=== PATIENT | male | born 1990 | race Two or more races ===

== ENCOUNTER 2020-05-08 20:11 | Inpatient (IN) ==
[2020-05-08] MEDS ORDERED: HYDROmorphone 2 MG/1 ML VIAL IV STA ×2 (20:13→21:59)
[2020-05-08] MEDS ORDERED: LACTATED RINGERS 1,000 ML IV STA (20:25)
[2020-05-08] MEDS ORDERED: DIPH/TET/ACEL PERT BOOSTER VACCINE 0.5 ML VIAL IM ONE (20:25)
[2020-05-08 20:52] LABS: Basophils # 0.1 10*3/uL (0.0-0.2); Basophils % 0.2 % (0.0-0.8); Eosinophils # 0.2 10*3/uL (0.0-0.87); Eosinophils % 0.8 % (0.00-10.9); Hematocrit 46.5 VOL% (42.0-52.0); Hemoglobin 15.5 GM/DL (14.0-18.0); Immature Granulocytes % 0.7 %; Immature Granulocytes Absolute 0.15 #; Lymphocytes # 3.5 10*3/uL (1.4-4.0); Lymphocytes % 15.5 % (21.2-54.2); Mean Corpuscular HGB Conc 33.3 GM/DL (32-36); Mean Corpuscular Volume 91.2 FL (87-102); Mean Platelet Volume 9.6 FL (9.6-12.0); Monocytes % 5.9 % (1.7-12.7); Neutrophils % 76.9 % (38.7-73.9); Platelet Count 330 T/CUMM (130-400); Red Cell Distribution Width 14.2 % (9.3-17.3); White Blood Count 22.7 T/CUMM (4-12)
[2020-05-08 21:06] LABS: Bilirubin,Urine Negative (Negative); Blood, Urine Negative (Negative); Glucose,Urine (UA) Negative (Negative); Ketones,Urine Negative (Negative); Mucus,Urine Occasional /LPF (Occasional); Nitrite,Urine Negative (Negative); Protein,Urine 100 MG/DL; RBC,Urine 1 /HPF (0-4); Urine Appearance CLEAR (Clear); Urine Color Yellow (Yellow); Urine Specific Gravity 1.018 (1.001-1.035); WBC,Urine <1 /HPF (0-6)
[2020-05-08 21:07] LABS: PT Patient Result 10.4 SECS (9.8-11.9); Partial Thromboplastin Time 21.4 SECS (23.9-33.8)
[2020-05-08 21:11] LABS: Barbiturates Screen,Urine Negative (Negative); Benzodiazepines Screen,Urine Negative (Negative); Cannabinoid Screen,Urine Negative (Negative); Opiate Screen,Urine Negative (Negative); Phencyclidine Screen,Urine Negative (Negative)
[2020-05-08 21:12] LABS: Alanine Aminotransferase 47 U/L (16-61); Albumin 3.8 G/DL (3.4-5.0); Alkaline Phosphatase 110 U/L (45-117); Amylase 90 U/L (25-115); Aspartate Amino Transferase 33 U/L (0-37); Blood Urea Nitrogen 12 MG/DL (7-18); Calcium 9.1 MG/DL (8.5-10.1); Estimated Glom Filtration Rate 56 ML/MIN; Glucose 124 MG/DL (74-106); Osmolality,Calculated 275.7 MOS/KG (273-304)
[2020-05-08] MEDS ORDERED: POTASSIUM CHLORIDE RIDER 20 MEQ in PREMIX 1 EACH IV STA ×2 (21:16→21:21)
[2020-05-08 21:19] LABS: Eosinophils 2 % (0-10); Lymphocytes 20 % (20-55); Platelet Estimate Normal; Reactive Lymphocytes 1+; Segmented Neutrophils 74 % (50-85); Total Cells Counted 100
[2020-05-08] MEDS ORDERED: GENTAMICIN INJ 100 MG in SODIUM CHLORIDE 0.9% 100 ML IV STA (22:03)
[2020-05-08] MEDS ORDERED: LIDOCAINE 2% 20 ML VIAL ONE (22:03)
[2020-05-08] MEDS ORDERED: GENTAMICIN INJ 100 ML IV STA (22:07)
[2020-05-08] MEDS ORDERED: TISSUE ADHESIVE 1 EACH APPLICATOR TOP ONE (22:19)
[2020-05-09] MEDS ORDERED: ACETAMINOPHEN 325 MG TABLET PO PRN (03:46)
[2020-05-09] MEDS ORDERED: HYDROmorphone 2 MG/1 ML VIAL IV PRN (03:46)
[2020-05-09] MEDS ORDERED: ONDANSETRON 4 MG/2 ML VIAL IV PRN (03:46)
[2020-05-09] MEDS ORDERED: ALBUTEROL/IPRATROPIUM 3 ML NEB RESP TX PRN (03:46)
[2020-05-09 06:49] LABS: Basophils % 0.2 % (0.0-0.8); Hematocrit 39.5 VOL% (42.0-52.0); Immature Granulocytes % 0.6 %; Immature Granulocytes Absolute 0.07 #; Lymphocytes # 1.1 10*3/uL (1.4-4.0); Lymphocytes % 8.3 % (21.2-54.2); Mean Corpuscular HGB Conc 34.2 GM/DL (32-36); Mean Corpuscular Volume 89.4 FL (87-102); Mean Platelet Volume 9.9 FL (9.6-12.0); Monocytes % 9.7 % (1.7-12.7); Neutrophils % 81.2 % (38.7-73.9); Platelet Count 282 T/CUMM (130-400); Red Blood Count 4.42 MC/CUMM (3.8-5.5); Red Cell Distribution Width 14.4 % (9.3-17.3)
[2020-05-09 06:51] LABS: White Blood Count 12.7 T/CUMM (4-12)
[2020-05-09 06:52] LABS: Hemoglobin 13.5 GM/DL (14.0-18.0)
[2020-05-09 07:00] LABS: Albumin 3.4 G/DL (3.4-5.0); Bilirubin,Total 1.4 MG/DL (0.2-1.0); Calcium 8.9 MG/DL (8.5-10.1); Osmolality,Calculated 272.8 MOS/KG (273-304); Total Protein 7.1 G/DL (6.4-8.3)
[2020-05-09] MEDS: SODIUM CHLORIDE 0.9% 1,000 ML IV SCH ×2 (07:07→18:07)
[2020-05-09] MEDS ORDERED: PROMETHAZINE 25 MG/1 ML VIAL IM PRN (09:35)
[2020-05-09] MEDS ORDERED: MORPHINE 4 MG/1 ML VIAL IV PRN (09:35)
[2020-05-09] MEDS ORDERED: diphenhydrAMINE CAP 25 MG CAPSULE PO PRN (09:35)
[2020-05-09] MEDS ORDERED: BISACODYL 10 MG SUPP RECTAL PRN (09:35)
[2020-05-09] MEDS ORDERED: LACTULOSE 20 GM/30 ML UDCUP PO PRN (09:35)
[2020-05-09] MEDS ORDERED: MAGNESIUM HYDROXIDE SUSP 30 ML UDCUP PO PRN (09:35)
[2020-05-09] MEDS ORDERED: LIDOCAINE 2% 5 ML VIAL ONE (09:47)
[2020-05-09] MEDS ORDERED: propofoL 200 MG/20 ML VIAL IV ONE (09:47)
[2020-05-09] MEDS ORDERED: LABETALOL 20 MG/4 ML SYRINGE IV ONE (09:47)
[2020-05-09] MEDS ORDERED: DEXAMETHASONE 4 MG/1 ML VIAL ONE (09:48)
[2020-05-09] MEDS ORDERED: fentaNYL 100 MCG/2 ML VIAL ONE (09:48)
[2020-05-09] MEDS ORDERED: SEVOFLURANE 1 UNIT/15 MINUTE INH ONE (09:48)
[2020-05-09] MEDS ORDERED: ONDANSETRON 4 MG/2 ML VIAL ONE (09:48)
[2020-05-09] MEDS ORDERED: MIDAZOLAM 2 MG/2 ML VIAL ONE (09:48)
[2020-05-09] MEDS ORDERED: NITROGLYCERIN DRIP 50 MG/250 ML BOTTLE IV ONE (09:49)
[2020-05-09] MEDS ORDERED: ROCURONIUM 100 MG/10 ML VIAL IV ONE (09:49)
[2020-05-09] MEDS ORDERED: ACETAMINOPHEN 1,000 MG/100 ML VIAL IV ONE (09:49)
[2020-05-09] MEDS ORDERED: NEOSTIGMINE 10 MG/10 ML VIAL ONE (09:49)
[2020-05-09] MEDS ORDERED: GLYCOPYRROLATE 0.4 MG/2 ML VIAL ONE (09:49)
[2020-05-09] MEDS ORDERED: KETOROLAC 30 MG/1 ML VIAL ONE (09:49)
[2020-05-09] MEDS: ceFAZolin 1,000 MG in SYRINGE 1 EACH IV SCH ×2 (13:52→22:39)
[2020-05-09] MEDS: PANTOPRAZOLE 40 MG TABLET PO SCH (13:52)
[2020-05-10] MEDS: ceFAZolin 1,000 MG in SYRINGE 1 EACH IV SCH ×3 (04:38→20:00)
[2020-05-10 05:59] LABS: Basophils % 0.1 % (0.0-0.8); Eosinophils % 0.1 % (0.00-10.9); Hematocrit 31.7 VOL% (42.0-52.0); Hemoglobin 10.7 GM/DL (14.0-18.0); Immature Granulocytes % 0.3 %; Immature Granulocytes Absolute 0.03 #; Lymphocytes # 1.5 10*3/uL (1.4-4.0); Lymphocytes % 13.7 % (21.2-54.2); Mean Corpuscular HGB Conc 33.8 GM/DL (32-36); Mean Corpuscular Volume 91.1 FL (87-102); Mean Platelet Volume 9.9 FL (9.6-12.0); Monocytes % 10.8 % (1.7-12.7); Platelet Count 222 T/CUMM (130-400); Red Blood Count 3.48 MC/CUMM (3.8-5.5); Red Cell Distribution Width 14.6 % (9.3-17.3); White Blood Count 10.8 T/CUMM (4-12)
[2020-05-10] MEDS: PANTOPRAZOLE 40 MG TABLET PO SCH (09:16)
[2020-05-11] MEDS: ceFAZolin 1,000 MG in SYRINGE 1 EACH IV SCH (03:19)
[2020-05-11] MEDS: SODIUM CHLORIDE 0.9% 1,000 ML IV SCH (06:24)
[2020-05-11] MEDS: PANTOPRAZOLE 40 MG TABLET PO SCH (09:17)
[2020-05-11 11:45] VITALS: BP 133/76
== END 2020-05-11 11:50 | disposition home or self-care (01) | DRG 493 ==
LOC: N.ED 20:11 → N.EDINP 05-09 01:30 → N.3E 05-09 03:25
PROVIDERS: ADMIT Student in an Organized Health Care Education/Training Program; ATTEND Student in an Organized Health Care Education/Training Program